=== PATIENT | male | born 1990 | race Hispanic/Latino ===

== ENCOUNTER 2020-01-02 22:51 | Emergency (ER) | payer SELFPAY | END 2020-01-03 00:38 | disposition home or self-care (01) | LOC: ERS 22:51 | DX: L25.9 Unspecified contact dermatitis, unspecified cause (principal); M79.89 Other specified soft tissue disorders; M41.9 Scoliosis, unspecified; F98.8 Other specified behavioral and emotional disorders with onset usually occurring in childhood and adolescence | CPT/HCPCS: 99282 ==

== ENCOUNTER 2021-12-17 23:08 | Emergency (ER) | payer SELFPAY | END 2021-12-17 23:48 | disposition left against medical advice (07) | LOC: ERS 23:08 | DX: Z53.21 Procedure and treatment not carried out due to patient leaving prior to being seen by health care provider (principal) ==